=== PATIENT | female | born 1985 | race Caucasian/White ===

== ENCOUNTER 2024-11-16 12:51 | Outpatient (CLI) | payer BC, SELFPAY | END 2024-11-16 12:52 | disposition home or self-care (01) | PROVIDERS: Visit Provider Nurse Practitioner Family | DX: Z01.818 Encounter for other preprocedural examination (principal) | CPT/HCPCS: 80053; 85025 ==

== ENCOUNTER 2024-11-21 07:23 | Day surgery (SDC) | payer BC, SELFPAY ==
[2024-11-21] VITALS (16 sets, daily range): BP systolic 91–112; BP diastolic 42–77; PULSE 59–78; RESP 14–16; TEMP 36.4–37.1; O2SAT 94–99; BMI 24.9
--- NOTE | 2024-11-21 07:38 | W.PM.H&PU ---
History & Physical Update History & Physical Update H&P Reviewed and patient assessed: No changes noted
[2024-11-21] MEDS: SODIUM CHLORIDE 0.9 % (FLUSH) 10 ML SYRINGE IVF (07:45)
[2024-11-21] MEDS: LACTATED RINGERS 1000 ML 1,000 ML 100 ML IV (07:45)
--- NOTE | 2024-11-21 08:09 | SUR.PREOP ---
TIME?OUT:?12 PT/RN/MDA?VERIFICATION?OF?SURGICAL?SITE,?PROCEDURE,?AND?CONSENT OBTAINED?PRIOR?TO?INVASIVE?PROCEDURE.
[2024-11-21] MEDS: MIDAZOLAM HCL 1 MG/ML inj IVP (08:13)
--- NOTE | 2024-11-21 09:21 | P.ANES_ITS ---
Anesthesia Charges Start Date/Time Anesthesia Start Date: 11/21/24 Anesthesia Start Time: 08:29 Stop Date/Time Anesthesia Stop Date: 11/21/24 Anesthesia Stop Time: 10:37 Coding CPT Codes CPT Codes: ANESTH LOWER LEG BONE SURG - 20754 ([id number]) P1 - NORMAL HEALTHY PATIENT, QK - TERMINAL CARMAN 2-4 CNCRNT ANES PROC, QX - FARM OR RANCH ANIMAL CARETAKER SVOrestes W/ MED DIRECTION
--- NOTE | 2024-11-21 09:21 | W.ANESCHARGE ---
Anesthesia Charges Start Date/Time Anesthesia Start Date: 11/21/24 Anesthesia Start Time: 08:29 Stop Date/Time Anesthesia Stop Date: 11/21/24 Anesthesia Stop Time: 10:37 Coding CPT Codes CPT Codes: ANESTH LOWER LEG BONE SURG - 39001 ([id number]) P1 - NORMAL HEALTHY PATIENT, QK - AGITATOR OPERATOR 2-4 CNCRNT ANES PROC, QX - FORMAL WEAR RENTAL CLERK SVOrestes W/ MED DIRECTION
--- NOTE | 2024-11-21 09:22 | P.NB_ITS ---
Nerve Block Nerve Block Time Seen by Provider: 08:15 Date Seen: 11/21/24 Type of block requested by surgeon for post-operative analgesia: popliteal Side: right Time out performed: Yes Verification of patient name: Yes Verification of date of : Yes Site marking: site marked Name of person performing procedure: Joao Continuous monitoring Was continuous monitoring of O2 sat, B/P, marketing development representative, recorded every 15 minutes?: Yes Procedure Checklist: sterile prep, needles and gloves Ultrasound guided. Images saved: Yes Medications given in 5ml increments after negative aspiration: Marcaine %: 0.25 mL: 15 Needle gauge: 20 and Exparel Decadron (mg): 5 Patient tolerated procedure well: Yes Additional comments: Needle noted adjacent to nerve Block Charges Block Charge (with Pro Fee): Sciatic Nerve Use of Ultrasound Machine for Block: Yes- US Guidance/pain block
--- NOTE | 2024-11-21 09:23 | W.PM.NB ---
Nerve Block Nerve Block Time Seen by Provider: 08:15 Date Seen: 11/21/24 Type of block requested by surgeon for post-operative analgesia: adductor canal Side: right Time out performed: Yes Verification of patient name: Yes Verification of date of : Yes Site marking: site marked Name of person performing procedure: Joao Continuous monitoring Was continuous monitoring of O2 sat, B/P, equipment monitor phototypesetting, recorded every 15 minutes?: Yes Procedure Checklist: sterile prep, needles and gloves Ultrasound guided. Images saved: Yes Medications given in 5ml increments after negative aspiration: Marcaine %: 0.25 mL: 10 Needle gauge: 20 and Exparel mL: 5 Patient tolerated procedure well: Yes Block Charges Block Charge (with Pro Fee): Femoral Nerve Use of Ultrasound Machine for Block: Yes- US Guidance/pain block
--- NOTE | 2024-11-21 10:12 | P.ORPRC_ITS ---
Procedure Note Date of procedure: 11/21/24 Procedure: PREOPERATIVE DIAGNOSES: 1. Right ankle trimalleolar fracture, closed, acute POSTOPERATIVE DIAGNOSES: 1. Right ankle trimalleolar fracture, closed, acute NAME OF OPERATION: 1. Right ankle bimalleolar (medial and lateral malleolus) open reduction with internal fixation 2. Right ankle posterior malleolus closed treatment of closed fracture. 3. Intraoperative fluoroscopy operated and interpreted by Fco Acosta M.D. for intraoperative evaluation of fracture reduction and implant positioning. Fluoroscopy time was 29 seconds. SURGEON: Fco Acosta MD DIRECTOR CHECK: Chelsie Tripathi PA-C; Of note, an assistant professor of mathematics was critical for this case to aide in patient positioning, leg manipulation, tissue retraction, closure, & splinting. ANESTHESIA: Spinal plus popliteal block. EBL: 5ml IMPLANTS: Titanium implants including [Lateral malleolus fixation with Arthrex 3.0 mm interfragmentary screw (x1), a distal fibular locking plate with 3.0 distal locking and 3.5mm proximal nonlocking screws for lateral malleolus fixation; Medial malleolus fixation with Arthrex cannulated 4.0 mm partially threaded screw(s) (x2). TOURNIQUET: 68 minutes at 250 torr-thigh tourniquet INDICATIONS: The patient is a pleasant 39-year-old female who sustained a right ankle injury in the recent past with difficulty bearing weight. Workup included xrays which revealed an unstable ankle fracture as noted above. Given these findings, surgery was recommended to stablize the ankle. FINDINGS: Closed, comminuted, displaced trimalleolar facture of the right ankle. The medial and lateral malleolus fragments were fixed initially. We then assessed the posterior malleolus fragment found this to be relatively small and well aligned. Therefore closed treatment of posterior malleolus fracture was done. The syndesmosis was also stressed and found to be stable. Therefore, close treatment of the syndesmosis [with poor bone quality; the medial malleolar fragment was smal PROCEDURE: Following a thorough discussion of risks, benefits, and alternatives, consent was obtained and the right ankle was marked. The patient was brought to the operating room and placed supine on the operating table. Induction of anesthesia was undertaken. Appropriate time out was performed identifying proper patient, site and procedure. 1 gram of iv Ancef was administered within 1 hour of incision preoperatively. The right lower extremity was prepped and draped in the appropriate sterile fashion using ChloraPrep. The limb was exsanguinated and the tourniquet inflated. A longitudinal incision was made overlying the distal fibula. Sharp incision through skin and subcutaneous tissue was performed while protecting any crossing neurologic structures. The fracture was encountered, and cleared of interposed periosteum and fracture hematoma. The joint was entered, and thoroughly irrigated with normal saline. The fracture was reduced and temporarily held with reduction clamps. A 3.0 mm interfragmentary screw was drilled lag technique. Following compression with the screw, a distal fibular locking plate was utilized in a neutralization lateral position. Distal and proximal holes were filled with locking and nonlocking screws. Following C-arm confirmation of appropriate plate position, and screw length, attention was turned to the medial fixation. A longitudinal incision was made overlying the medial malleolar fracture. Sharp incision through skin and blunt dissection to the subcutaneous tissue allowed us to protect the crossing neurovascular structures. The fracture was cleared of interposed periosteum/callus/hematoma. It was reduced, and secured with 2 guide pins placed for 2 cannulated screws perpendicular to the fracture plane. After confirming the guide pins to be extra-articular and in appropriate position, the bone was subsequently drilled, and partially threaded 4.0 mm cannulated screws were placed with excellent compression. The guide pins were removed and the fragment remained stable. After confirming appropriate reduction/positioning on C-arm fluoroscopic imaging, the ankle was tested for syndesmosis stability. External rotation was performed. Indeed it remained stable. No widening of the mortise was appreciated. At this stage, the wound was thoroughly irrigated with normal saline. Closure was performed with #2-0 Stratafix for the deep periosteum and subcutaneoud closure and 4-0 Stratafix for subcuticular closure. Dressings were applied and a sugar-tong splint was applied. The patient was awoken from anesthesia and transferred to the PACU in stable condition. Of note, intraoperative fluoroscopy was operated and interpreted real time by me throughout this right ankle ORIF procedure. PLAN: 1. Elevate operative extremity. 2. Encouraged ice PRN. 3. Tylenol, ibuprofen, and/or Oxycodone for pain as needed. 4. Follow up with PA visit in 10-14 days with removal splint, transition to Cam boot, and initiate weightbear as tolerated. Then follow-up with me at the 6 week jaki. Repeat x-rays right ankle-three views. 5. Toe touch weightbearing operative extremity at this time until 1st postop visit.
--- NOTE | 2024-11-21 10:39 | P.ANES_ITS ---
Anesthesia Charges Start Date/Time Anesthesia Start Date: 11/21/24 Anesthesia Start Time: 08:29 Stop Date/Time Anesthesia Stop Date: 11/21/24 Anesthesia Stop Time: 10:37 Coding CPT Codes CPT Codes: ANESTH LOWER LEG BONE SURG - 22832 ([id number]) P1 - NORMAL HEALTHY PATIENT, QK - ADMINISTRATIVE SALES ASSISTANT 2-4 CNCRNT ANES PROC, QX - HONEY PRODUCER SVOrestes W/ MED DIRECTION
--- NOTE | 2024-11-21 10:39 | W.ANESCHARGE ---
Anesthesia Charges Start Date/Time Anesthesia Start Date: 11/21/24 Anesthesia Start Time: 08:29 Stop Date/Time Anesthesia Stop Date: 11/21/24 Anesthesia Stop Time: 10:37 Coding CPT Codes CPT Codes: ANESTH LOWER LEG BONE SURG - 12731 ([id number]) P1 - NORMAL HEALTHY PATIENT, QK - WEAVING SUPERVISOR 2-4 CNCRNT ANES PROC, QX - MECHANICAL UNIT REPAIRER SVOrestes W/ MED DIRECTION
== END 2024-11-21 12:25 | disposition home or self-care (01) ==
PROVIDERS: Visit Provider Orthopaedic Surgery Sports Medicine
PROC: (CPT 27814; principal; 2024-11-21 09:00)
DX: S82.851A Displaced trimalleolar fracture of right lower leg, initial encounter for closed fracture (principal); G89.18 Other acute postprocedural pain
CPT/HCPCS: 27814; 27768; 01480; 64445; 64447; 73610; 76000; 76942; C1713; J0665; J0666; J0690; J1100; J2250; J2405; J2704; J3010; J7120